=== PATIENT | male | born 1965 | race Caucasian/White ===

== ENCOUNTER 2017-10-20 20:50 | Observation (INO) | payer MEDICARE ==
[~2017-10-20] VITALS: Ht 172.7 cm; Wt 87.8 kg
[2017-10-20] MEDS ORDERED: FLUO40CA9 PO (21:05)
[2017-10-20] MEDS ORDERED: CLON2TAB2 PO (21:05)
[2017-10-20] MEDS ORDERED: BUPR1FIL3 SL ×2 (21:05)
[2017-10-20] MEDS ORDERED: SODIUM CHLORIDE 0.9% 1,000 ML IV ONE (21:17)
[2017-10-20] MEDS ORDERED: SODIUM CHLORIDE FLUSH 10ML SYR IVF ONE (21:30)
[2017-10-20] MEDS ORDERED: ONDANSETRON 2MG/ML, 2ML IVPush ONE (21:30)
[2017-10-20] MEDS ORDERED: SODIUM CHLORIDE 0.9% 1,000ML IVBOLUS ONE (21:30)
[2017-10-20 21:50] LABS: BASOPHILS # (AUTO) 0.03 x10^3/uL (0-0.1); BASOPHILS % (AUTO) 1 % (0-1); EOSINOPHILS # (AUTO) 0.21 x10^3/uL (0-0.4); EOSINOPHILS % (AUTO) 4 % (1-7); LYMPHOCYTES # (AUTO) 1.56 x10^3/uL (1-3.4); LYMPHOCYTES % (AUTO) 27 % (22-44); MD NO; MEAN CORPUSCULAR HEMOGLOBIN 30.9 pg (27.5-34.5); MEAN CORPUSCULAR HGB CONC 33.8 g/dL (33.2-36.2); MEAN CORPUSCULAR VOLUME 91.6 fL (81-97); MEAN PLATELET VOLUME 6.6 fL (7.4-10.4); MONOCYTES # (AUTO) 0.37 x10^3/uL (0.2-0.8); MONOCYTES % (AUTO) 6 % (2-9); NEUTROPHILS # (AUTO) 3.64 x10^3/uL (1.8-6.8); NEUTROPHILS % (AUTO) 63 % (42-75); PLATELET COUNT 237 x10^3/uL (130-400); RED BLOOD COUNT 4.95 x10^6/uL (4.38-5.82); RED CELL DISTRIBUTION WIDTH 12.9 % (9.4-14.8)
[2017-10-20] MEDS ORDERED: ONDANSETRON 2MG/ML, 2ML ONE (21:57)
[2017-10-20 22:02] LABS: ALBUMIN 3.4 g/dL (3.4-5.0); ANION GAP 4 mmol/L (5-15); CALCIUM 8.4 mg/dL (8.5-10.1); CHLORIDE 106 mmol/L (98-107)
[2017-10-20 22:07] LABS: SALICYLATE LEVEL < 1.7 mg/dL (2.8-20.0)
[2017-10-20 22:08] LABS: ACETAMINOPHEN < 2 mcg/mL (10-30); ALANINE AMINOTRANSFERASE 19 U/L (12-78); ALKALINE PHOSPHATASE 49 U/L (45-117); BILIRUBIN,TOTAL 0.6 mg/dL (0.2-1.0); CREATININE 1.02 mg/dL (0.7-1.3); TOTAL PROTEIN 6.5 g/dL (6.4-8.2); TROPONIN I < 0.015 ng/mL (0.000-0.045)
[2017-10-20 23:51] LABS: CULTURE INDICATED? YES; MICROSCOPIC INDICATED
[2017-10-21 00:49] LABS: AMPHETAMINE SCREEN, URINE Negative (Negative); BARBITURATE SCREEN, URINE Negative (Negative); BENZODIAZEPINE SCREEN, URINE Positive (Negative); CANNABINOID SCREEN, URINE Negative (Negative); COCAINE SCREEN, URINE Negative (Negative); METHADONE SCREEN, URINE Negative (Negative); OPIATE SCREEN, URINE Negative (Negative)
[2017-10-21] MEDS ORDERED: ONDANSETRON ODT 4 MG PO PRN (04:00)
[2017-10-21] MEDS ORDERED: SULFAMETH./TRIMETHOPRIM DS 800MG/160MG TABLET ONE (07:43)
[2017-10-21] MEDS: GABAPENTIN 100 MG CAPSULE PO SCH ×2 (09:09→21:13)
[2017-10-21] MEDS: SULFAMETH./TRIMETHOPRIM DS 800MG/160MG TABLET PO SCH ×2 (09:09→21:13)
[2017-10-21] MEDS: FLUOXETINE HCL 20 MG CAPSULE PO SCH (09:10)
[2017-10-21] MEDS: BUPRENORPHINE/NALOXONE 8-2MG SL SCH ×2 (09:24→21:13)
[2017-10-21 19:29] VITALS: BP 123/73
[2017-10-21 21:12] VITALS: BP 138/88
[2017-10-22] MEDS: FLUOXETINE HCL 20 MG CAPSULE PO SCH (08:03)
[2017-10-22] MEDS: GABAPENTIN 100 MG CAPSULE PO SCH ×2 (08:04→20:53)
[2017-10-22] MEDS: AMOXICILLIN/CLAV 875-125MG TABLET PO SCH ×2 (08:04→20:54)
[2017-10-22] MEDS: SULFAMETH./TRIMETHOPRIM DS 800MG/160MG TABLET PO SCH ×2 (08:04→20:54)
[2017-10-22] MEDS: ACETAMINOPHEN 325 MG TABLET PO PRN ×2 (08:08→21:11)
[2017-10-22 08:23] VITALS: BP 147/92
[2017-10-22] MEDS ORDERED: BUPRENORPHINE HCL/NALOXONE 8-2MG FILM SL ONE (12:49)
[2017-10-22] MEDS: BUPRENORPHINE/NALOXONE 8-2MG SL SCH (12:54)
[2017-10-22 12:56] VITALS: BP 111/75
[2017-10-22] MEDS ORDERED: NICOTINE 7 MG/24 HR PATCH.TD24 ONE (13:26)
[2017-10-22] MEDS: NICOTINE 7 MG/24 HR PATCH.TD24 TD SCH (13:28)
[2017-10-22 19:40] VITALS: BP 121/76
[2017-10-23 08:07] VITALS: BP 113/74
[2017-10-23] MEDS: GABAPENTIN 100 MG CAPSULE PO SCH ×2 (08:39→20:39)
[2017-10-23] MEDS: AMOXICILLIN/CLAV 875-125MG TABLET PO SCH ×2 (08:39→20:39)
[2017-10-23] MEDS: FLUOXETINE HCL 20 MG CAPSULE PO SCH (08:39)
[2017-10-23] MEDS: SULFAMETH./TRIMETHOPRIM DS 800MG/160MG TABLET PO SCH (08:39)
[2017-10-23] MEDS: BUPRENORPHINE/NALOXONE 8-2MG SL SCH (09:00)
[2017-10-23] MEDS ORDERED: BUPRENORPHINE HCL/NALOXONE 8-2MG FILM SL ONE (09:26)
[2017-10-23 09:29] VITALS: BP 114/72
[2017-10-23] MEDS: NICOTINE 7 MG/24 HR PATCH.TD24 TD SCH (13:10)
[2017-10-23 19:44] VITALS: BP 108/67
[2017-10-24 05:47] LABS: ALBUMIN 3.5 g/dL (3.4-5.0); ANION GAP 3 mmol/L (5-15); CALCIUM 8.4 mg/dL (8.5-10.1); CHLORIDE 107 mmol/L (98-107); CREATININE 1.08 mg/dL (0.7-1.3)
[2017-10-24 05:49] LABS: BASOPHILS # (AUTO) 0.04 x10^3/uL (0-0.1); BASOPHILS % (AUTO) 1 % (0-1); EOSINOPHILS # (AUTO) 0.27 x10^3/uL (0-0.4); EOSINOPHILS % (AUTO) 4 % (1-7); LYMPHOCYTES # (AUTO) 2.29 x10^3/uL (1-3.4); LYMPHOCYTES % (AUTO) 37 % (22-44); MD NO; MEAN CORPUSCULAR HEMOGLOBIN 30.7 pg (27.5-34.5); MEAN CORPUSCULAR HGB CONC 34.2 g/dL (33.2-36.2); MEAN CORPUSCULAR VOLUME 89.8 fL (81-97); MEAN PLATELET VOLUME 6.5 fL (7.4-10.4); MONOCYTES # (AUTO) 0.57 x10^3/uL (0.2-0.8); MONOCYTES % (AUTO) 9 % (2-9); NEUTROPHILS # (AUTO) 3.11 x10^3/uL (1.8-6.8); NEUTROPHILS % (AUTO) 50 % (42-75); PLATELET COUNT 226 x10^3/uL (130-400); RED BLOOD COUNT 4.88 x10^6/uL (4.38-5.82); RED CELL DISTRIBUTION WIDTH 13.1 % (9.4-14.8)
[2017-10-24 08:12] VITALS: BP 145/81
[2017-10-24] MEDS: GABAPENTIN 100 MG CAPSULE PO SCH ×2 (08:25→20:19)
[2017-10-24] MEDS: FLUOXETINE HCL 20 MG CAPSULE PO SCH (08:25)
[2017-10-24] MEDS: AMOXICILLIN/CLAV 875-125MG TABLET PO SCH (08:25)
[2017-10-24] MEDS: BUPRENORPHINE HCL/NALOXONE 8-2MG FILM SL SCH (08:26)
[2017-10-24] MEDS: NICOTINE 7 MG/24 HR PATCH.TD24 TD SCH (13:28)
[2017-10-24 19:46] VITALS: BP 155/82
[2017-10-25 07:55] VITALS: BP 127/81
[2017-10-25] MEDS: BUPRENORPHINE HCL/NALOXONE 8-2MG FILM SL SCH ×2 (08:26→09:00)
[2017-10-25] MEDS: GABAPENTIN 100 MG CAPSULE PO SCH (08:45)
[2017-10-25] MEDS: FLUOXETINE HCL 20 MG CAPSULE PO SCH (08:45)
[2017-10-25] MEDS: NICOTINE 7 MG/24 HR PATCH.TD24 TD SCH (12:33)
[2017-10-25] MEDS ORDERED: GABA-826 PO (17:12)
[2017-10-25] MEDS ORDERED: CLON-365 PO ×2 (17:15)
== END 2017-10-25 17:58 | disposition home or self-care (01) ==
LOC: ED 23:54 → SUATTDRO 10-21 03:56 → EDIP 10-21 03:57 → 2N 10-21 17:50 → 3E 10-24 18:02
PROVIDERS: ADMIT Hospitalist; ATTEND Family Medicine
DX: F11.94 Opioid use, unspecified with opioid-induced mood disorder (principal); F13.20 Sedative, hypnotic or anxiolytic dependence, uncomplicated; M19.90 Unspecified osteoarthritis, unspecified site; F10.10 Alcohol abuse, uncomplicated
CPT/HCPCS: 36415; 71045; 80048; 80053; 80307; 80329; 81001; 82040; 83735; 84484; 85025; 87086; 93005; 96360; 96361; 99285; G0378; J7030; G0480